=== PATIENT | female | born 1990 | race African-American/Black ===

== ENCOUNTER 2020-01-03 08:00 | Observation (INO) ==
[2020-01-03 09:11] LABS: Hematocrit 34.8 VOL% (35.7-47.0); Hemoglobin 10.5 GM/DL (12.0-16.0); Immature Granulocytes % 0.7 %; Immature Granulocytes Absolute 0.04 #; Lymphocytes # 0.8 10*3/uL (1.4-4.0); Lymphocytes % 12.7 % (21.3-54.2); Mean Corpuscular HGB Conc 30.2 GM/DL (32-36); Mean Corpuscular Volume 80.6 FL (87-102); Mean Platelet Volume 10.2 FL (9.6-12.0); Monocytes % 5.2 % (1.7-12.7); Neutrophils % 81.4 % (38.7-73.9); Platelet Count 170 T/CUMM (130-400); Red Blood Count 4.32 MC/CUMM (3.8-5.5); Red Cell Distribution Width 16.1 % (9.3-17.3); White Blood Count 6.1 T/CUMM (4-12)
[2020-01-03 09:48] LABS: Albumin 3.3 G/DL (3.4-5.0); Bilirubin,Total 0.6 MG/DL (0.2-1.0); Calcium 8.4 MG/DL (8.5-10.1); Osmolality,Calculated 274.5 MOS/KG (273-304); Total Protein 7.5 G/DL (6.4-8.3)
[2020-01-03 09:57] LABS: Band Neutrophils 1 % (0-10); Hypochromasia 1+; Lymphocytes 12 % (20-55); Ovalocytes Slight; Platelet Estimate Adequate; Segmented Neutrophils 78 % (50-85); Total Cells Counted 100
[2020-01-03] MEDS ORDERED: ONDANSETRON 4 MG/2 ML VIAL IV PRN (11:05)
[2020-01-03] MEDS ORDERED: GLUCAGON 1 MG VIAL IM PRN (11:05)
[2020-01-03] MEDS ORDERED: DOCUSATE SODIUM 100 MG CAPSULE PO PRN (11:05)
[2020-01-03] MEDS ORDERED: hydrALAZINE 20 MG/1 ML VIAL IV PRN (11:05)
[2020-01-03] MEDS ORDERED: DEXTROSE 50% 25 GM/50 ML VIAL IV PRN (11:05)
[2020-01-03] MEDS ORDERED: AZITHROMYCIN 250 MG TABLET PO ONE (11:05)
[2020-01-03] MEDS ORDERED: ACETAMINOPHEN 325 MG TABLET PO PRN (11:05)
[2020-01-03 11:36] LABS: Thyroid Stimulating Hormone 1.69 uIU/ml (0.358-3.74)
[2020-01-03] MEDS: cefTRIAXone 1,000 MG in SYRINGE 1 EACH IV SCH (11:40)
[2020-01-03] MEDS ORDERED: ENOXAPARIN 40 MG/0.4 ML SYRINGE SUBCUT SCH (21:00)
[2020-01-04 06:08] LABS: Eosinophils % 0.3 % (0.00-10.9); Hemoglobin 10.5 GM/DL (12.0-16.0); Immature Granulocytes % 0.3 %; Immature Granulocytes Absolute 0.01 #; Lymphocytes # 1.6 10*3/uL (1.4-4.0); Lymphocytes % 47.6 % (21.3-54.2); Mean Corpuscular Volume 80.5 FL (87-102); Mean Platelet Volume 10.8 FL (9.6-12.0); Neutrophils % 41.8 % (38.7-73.9); Platelet Count 188 T/CUMM (130-400); Red Blood Count 4.35 MC/CUMM (3.8-5.5); Red Cell Distribution Width 16.2 % (9.3-17.3); White Blood Count 3.4 T/CUMM (4-12)
[2020-01-04 06:42] LABS: Hypochromasia 1+; Microcytosis Slight
[2020-01-04 06:43] LABS: Calcium 8.8 MG/DL (8.5-10.1); Osmolality,Calculated 279.1 MOS/KG (273-304)
[2020-01-04] MEDS: cefTRIAXone 1,000 MG in SYRINGE 1 EACH IV SCH (08:54)
[2020-01-04] MEDS ORDERED: AZITHROMYCIN 250 MG TABLET PO SCH (09:00)
[2020-01-04 12:02] VITALS: BP 116/72
== END 2020-01-04 12:25 | disposition home or self-care (01) ==
LOC: N.EDINP 08:00 → N.ED 08:00 → N.3E 11:30
PROVIDERS: ADMIT Internal Medicine; ATTEND Internal Medicine